=== PATIENT | male | born 1990 | race Caucasian/White ===

== ENCOUNTER 2017-06-30 11:08 | Emergency (ER) | payer MEDICAID, OTHER ==
[2017-06-30 11:34] VITALS: BP 113/74
--- NOTE | 2017-06-30 11:51 | UC ---
Skin Complaint HPI - HPI Summary HPI Summary: pain left great toe x 1 week + pressure sore due to wearing steel toe boots + pain , swelling, redness increase pain by walking and standing - History of Current Complaint Chief Complaint: UCLowerExtremity Time Seen by Provider: 06/30/17 11:35 Stated Complaint: (L) GREAT TOE COMPLAINT Hx Obtained From: Patient Onset/Duration: Gradual Onset, Lasting Days - 10, Still Present Timing: Constant Onset Severity: Moderate Current Severity: Moderate Pain Intensity: 3 Pain Scale Used: 0-10 Numeric Location: Discrete - left great toe Character: Swelling, Pain, Redness, Painful Aggravating Factor(s): Touch, Other - walking and standing Alleviating Factor(s): Other - keeping pressure of his left foot Associated Signs & Symptoms: Positive: Tenderness - Allergy/Home Medications Allergies/Adverse Reactions: Allergies Allergy/AdvReac Type Severity Reaction Status Date / Time Sulfa (Sulfonamide Allergy Unknown Unknown Verified 06/30/17 11:24 Antibiotics) Reaction Details Home Medications: Home Medications Methylphenidate TAB* [Ritalin TAB*] 5 mg PO DAILY 06/30/17 [History Confirmed ] Review of Systems Constitutional: Negative Skin: Negative Eyes: Negative ENT: Negative Respiratory: Negative Is Patient Immunocompromised?: No All Other Systems Reviewed And Are Negative: Yes PMH/Surg Hx/FS Hx/Imm Hx Previously Healthy: Yes - Surgical History Surgical History: None - Family History Known Family History: Negative: Diabetes - Social History Alcohol Use: None Substance Use Type: None Smoking Status (MU): Light Every Day Tobacco Smoker Type: Cigarettes Amount Used/How Often: 1/2 PPD Household Exposure Type: Cigarettes Physical Exam Triage Information Reviewed: Yes Appearance: Well-Appearing, No Pain Distress, Well-Nourished Vital Signs: Initial Vital Signs Temp 99.3 F 06/30/17 11:25 Pulse 80 06/30/17 11:25 Resp 16 06/30/17 11:25 BP 113/74 06/30/17 11:25 Pulse Ox 100 06/30/17 11:25 Vital Signs Reviewed: Yes Eyes: Positive: Conjunctiva Clear ENT: Positive: Normal ENT inspection, Hearing grossly normal, Pharynx normal Neck: Positive: Supple, Nontender Respiratory: Positive: Chest non-tender, Lungs clear, Normal breath sounds Cardiovascular: Positive: RRR, No Murmur, Pulses Normal Abdominal Exam: Normal Skin: Positive: Other - pressure sore left great toe , + erythema, swelling, tendernes Course/Dx - Diagnoses Provider Diagnoses: pressure sore left great toe Discharge - Sign-Out/Discharge Documenting (check all that apply): Discharge - Discharge Plan Condition: Stable Disposition: HOME Prescriptions: Cephalexin CAP* [Keflex CAP*] 500 mg PO TID #21 cap Patient Education Materials: Acute Wound Care (ED), Pressure Ulcer (ED) Forms: *Work Release Referrals: DARIUS Gaitan [Primary Care Provider] - 7 Days - Billing Disposition and Condition Condition: STABLE Disposition: HOME
== END 2017-06-30 11:47 | disposition home or self-care (01) ==
LOC: UCCORT 11:08
DX: L89.899 Pressure ulcer of other site, unspecified stage (principal); Z88.2 Allergy status to sulfonamides; F17.210 Nicotine dependence, cigarettes, uncomplicated
CPT/HCPCS: 99212; G0463

== ENCOUNTER 2017-07-15 12:31 | Emergency (ER) | payer OTHER ==
[2017-07-15 13:29] VITALS: BP 119/65
== END 2017-07-15 14:42 | disposition left against medical advice (07) ==
LOC: UCCORT 12:31
DX: J02.9 Acute pharyngitis, unspecified (principal); R05 Cough; Z53.21 Procedure and treatment not carried out due to patient leaving prior to being seen by health care provider

== ENCOUNTER 2023-09-21 10:59 | Inpatient (IN) ==
[2023-09-21 13:09] LABS: ABS Basophils 0.1 10^3/uL (0.0-0.1); ABS Eosinophils 0.1 10^3/uL (0.0-0.5); ABS Lymphocytes 1.4 10^3/uL (1.0-4.8); ABS Monocytes 1.1 10^3/uL (0.0-1.1); ABS Neutrophils 10.8 10^3/uL (1.5-7.6); Eosinophil % 0.7 %; Hematocrit 39.5 % (38-53); Hemoglobin 13.6 g/dL (13.2-16.3); Lymphocyte % 10.4 %; Mean Corpuscular Hemoglobin 30.8 pg (27-33); Mean Corpuscular Hgb Conc 34.3 g/dL (31-36); Mean Corpuscular Volume 89.6 fL (80-97); Platelet Count 386 10^3/uL (150-450); Red Blood Count 4.41 10^6/uL (4.06-5.63); Red Cell Distribution Width 13.2 % (12-17); White Blood Count 13.5 10^3/uL (3.6-10.2)
[2023-09-21 13:55] LABS: Anion Gap 10 mmol/L (2-16); Blood Urea Nitrogen 10 mg/dL (6-24); CO2 Carbon Dioxide 27 mmol/L (22-32); Calcium 8.8 mg/dL (8.6-10.3); Chloride 99 mmol/L (101-111); Glucose 92 mg/dL (70-100); Sodium 136 mmol/L (135-145); eGFR CKD-EPI 126.3 (>60)
[2023-09-21 14:01] LABS: CRP High Sensitivity > 80.00 mg/L (<2.00)
[2023-09-21] MEDS: Cefepime 2 GM in Dextrose 2 GM/50 ML BAG IV ONE (14:13)
[2023-09-21 14:30] LABS: Erythrocyte Sed Rate 104 mm/Hr (0-14)
[2023-09-21] MEDS ORDERED: Ondansetron 4 mg VIAL 2 MG/ML 2 ml VIAL IV PRN (14:42)
[2023-09-21 15:00] LABS: C Reactive Protein 128.62 mg/L (<8.01)
[2023-09-21] MEDS ORDERED: Vancomycin per Pharmacy 1 EA NOTE FOLLOW UP SCH (15:00)
[2023-09-21] MEDS ORDERED: Nicotine GUM 4MG FRUIT FLAVOR PO PRN (15:06)
[2023-09-21] MEDS: Vancomycin 1,250 MG in NS 0.9% 250 ml 250 ML IVPB ONE (15:08)
[2023-09-21] MEDS: Vancomycin 1,250 MG in NS 0.9% 250 ml 250 ML IVPB SCH (22:41)
[2023-09-22 07:00] LABS: ABS Basophils 0.1 10^3/uL (0.0-0.1); ABS Eosinophils 0.2 10^3/uL (0.0-0.5); ABS Lymphocytes 1.6 10^3/uL (1.0-4.8); ABS Monocytes 1.1 10^3/uL (0.0-1.1); ABS Neutrophils 8.9 10^3/uL (1.5-7.6); Hematocrit 34.7 % (38-53); Hemoglobin 11.9 g/dL (13.2-16.3); Lymphocyte % 13.1 %; Mean Corpuscular Hemoglobin 30.6 pg (27-33); Mean Corpuscular Hgb Conc 34.3 g/dL (31-36); Mean Corpuscular Volume 89.1 fL (80-97); Mean Platelet Volume 7.2 fL (7.5-11.2); Platelet Count 366 10^3/uL (150-450); Red Blood Count 3.89 10^6/uL (4.06-5.63); White Blood Count 11.8 10^3/uL (3.6-10.2)
[2023-09-22 07:12] LABS: Calcium 8.5 mg/dL (8.6-10.3); Creatinine, Serum 0.71 mg/dL (0.67-1.17); Potassium 4.4 mmol/L (3.5-5.0); eGFR CKD-EPI 125.8 (>60)
[2023-09-22] MEDS: Cefepime 2 GM in Dextrose 2 GM/50 ML BAG IV SCH (09:44)
[2023-09-22] MEDS: Vancomycin Trough Check NOTE FOLLOW UP ONE (17:05)
[2023-09-23 06:05] LABS: ABS Basophils 0.1 10^3/uL (0.0-0.1); ABS Eosinophils 0.2 10^3/uL (0.0-0.5); ABS Lymphocytes 1.4 10^3/uL (1.0-4.8); ABS Monocytes 1.1 10^3/uL (0.0-1.1); ABS Neutrophils 7.1 10^3/uL (1.5-7.6); Eosinophil % 2.2 %; Hematocrit 36.2 % (38-53); Hemoglobin 12.5 g/dL (13.2-16.3); Lymphocyte % 13.9 %; Mean Corpuscular Hemoglobin 30.8 pg (27-33); Mean Corpuscular Hgb Conc 34.5 g/dL (31-36); Mean Corpuscular Volume 89.2 fL (80-97); Mean Platelet Volume 6.9 fL (7.5-11.2); Platelet Count 404 10^3/uL (150-450); Red Blood Count 4.06 10^6/uL (4.06-5.63); Red Cell Distribution Width 13.4 % (12-17); White Blood Count 9.9 10^3/uL (3.6-10.2)
[2023-09-23] MEDS ORDERED: Midazolam 5 mg/5 ml VIAL 1 mg/ml 5 ml VIAL (5 mg) ONE (15:52)
[2023-09-23] MEDS ORDERED: fentaNYL 100 mcg/2 ml 50 MCG/ML VIAL ONE ×2 (15:52→17:42)
[2023-09-23] MEDS ORDERED: Bupivacaine 0.5% 50 ML MDV VIAL ONE (15:53)
[2023-09-23] MEDS ORDERED: Lidocaine 1% VIAL 10 MG/ML 30 ML VIAL ONE (16:08)
[2023-09-23] MEDS ORDERED: Propofol 10 MG/ML 20 ML BTL ONE ×2 (16:35)
[2023-09-23] MEDS ORDERED: Naloxone 0.4 mg VIAL 0.4 mg/ml 1 ml VIAL IV PRN (17:40)
[2023-09-23] MEDS ORDERED: HYDROmorphone 1 MG/1 ML SYRINGE IV PRN (17:40)
[2023-09-23] MEDS ORDERED: Ondansetron 4 mg VIAL 2 MG/ML 2 ml VIAL IV PRN (17:40)
[2023-09-23] MEDS ORDERED: Acetaminophen IV 1 GM/100ML 1,000 MG/100 ML BAG IV PRN (17:40)
[2023-09-23] MEDS: fentaNYL 100 mcg/2 ml 50 MCG/ML VIAL IV PRN (17:42)
[2023-09-23] MEDS: ceFAZolin 1 GM in Dextrose 1 GM/50 ML BAG IVPB SCH (20:25)
[2023-09-23] MEDS: Lactated Ringers 1000 ml BAG 1,000 ML IV ONE (20:25)
[2023-09-24 06:34] LABS: ABS Eosinophils 0.2 10^3/uL (0.0-0.5); ABS Lymphocytes 1.1 10^3/uL (1.0-4.8); ABS Neutrophils 6.7 10^3/uL (1.5-7.6); Eosinophil % 1.8 %; Hematocrit 36.9 % (38-53); Hemoglobin 12.9 g/dL (13.2-16.3); Lymphocyte % 12.3 %; Mean Corpuscular Hgb Conc 34.9 g/dL (31-36); Mean Corpuscular Volume 88.7 fL (80-97); Platelet Count 411 10^3/uL (150-450); Red Blood Count 4.15 10^6/uL (4.06-5.63); Red Cell Distribution Width 13.3 % (12-17)
[2023-09-24 07:06] LABS: Calcium 8.3 mg/dL (8.6-10.3); Creatinine, Serum 0.69 mg/dL (0.67-1.17); Potassium 4.3 mmol/L (3.5-5.0); eGFR CKD-EPI 126.9 (>60)
[2023-09-25 12:38] LABS: ABS Basophils 0.1 10^3/uL (0.0-0.1); ABS Eosinophils 0.2 10^3/uL (0.0-0.5); ABS Lymphocytes 1.5 10^3/uL (1.0-4.8); ABS Monocytes 0.8 10^3/uL (0.0-1.1); Eosinophil % 2.8 %; Hematocrit 36.9 % (38-53); Hemoglobin 12.7 g/dL (13.2-16.3); Lymphocyte % 19.8 %; Mean Corpuscular Hemoglobin 30.6 pg (27-33); Mean Corpuscular Hgb Conc 34.4 g/dL (31-36); Mean Platelet Volume 6.7 fL (7.5-11.2); Platelet Count 448 10^3/uL (150-450); Red Blood Count 4.14 10^6/uL (4.06-5.63); Red Cell Distribution Width 12.9 % (12-17); White Blood Count 7.5 10^3/uL (3.6-10.2)
[2023-09-25] MEDS: ceFAZolin 2 GM in NS PREMIX 2 GM/100 ML BAG IVPB SCH (16:52)
[2023-09-25] MEDS: metroNIDAZOLE IV 500 MG/100ML 500 MG/100 ML BAG IVPB SCH (17:45)
[2023-09-28 06:06] LABS: Albumin 3.1 g/dL (3.2-5.2); Albumin/Globulin Ratio 0.8 (1-3); Calcium 8.7 mg/dL (8.6-10.3); Creatinine, Serum 0.73 mg/dL (0.67-1.17); Globulin 3.9 g/dL (2-4); Potassium 4.6 mmol/L (3.5-5.0); Total Bilirubin 0.3 mg/dL (0.2-1.0); eGFR CKD-EPI 124.7 (>60)
[2023-09-28 09:02] LABS: C Reactive Protein 20.76 mg/L (<8.01)
[2023-09-28 09:33] LABS: ABS Basophils 0.1 10^3/uL (0.0-0.1); ABS Eosinophils 0.1 10^3/uL (0.0-0.5); ABS Lymphocytes 1.5 10^3/uL (1.0-4.8); ABS Monocytes 0.8 10^3/uL (0.0-1.1); ABS Neutrophils 4.2 10^3/uL (1.5-7.6); ABS Nucleated RBC 0.01 10^3/ul; Eosinophil % 2.1 %; Hematocrit 37.7 % (38-53); Hemoglobin 12.8 g/dL (13.2-16.3); Lymphocyte % 22.1 %; Mean Corpuscular Hemoglobin 30.3 pg (27-33); Mean Corpuscular Hgb Conc 33.9 g/dL (31-36); Mean Corpuscular Volume 89.3 fL (80-97); Mean Platelet Volume 6.5 fL (7.5-11.2); Nucleated Red Blood Cells % 0.1 %/100WBC (0.0-0.8); Platelet Count 425 10^3/uL (150-450); Red Blood Count 4.22 10^6/uL (4.06-5.63); Red Cell Distribution Width 13.6 % (12-17); White Blood Count 6.7 10^3/uL (3.6-10.2)
[2023-09-29 13:45] VITALS: BP 127/82
== END 2023-09-29 17:55 | disposition home health service (06) | DRG 314 ==
LOC: ED 10:59 → SUATTDRO 14:46 → EDHOLD 14:46 → MED 18:15
PROVIDERS: ADMIT Student in an Organized Health Care Education/Training Program; ATTEND Internal Medicine